=== PATIENT | female | born 1980 | race Caucasian/White ===

== ENCOUNTER 2020-12-08 17:00 | Emergency (ER) | payer BC ==
[2020-12-08 17:07] VITALS: BP 158/86
[2020-12-08 17:27] LABS: CLARITY,URINE CLOUDY (Clear); COLOR,URINE YELLOW (Yellow); GLUCOSE, URINE NEGATIVE (Neg); KETONES,URINE NEGATIVE (Neg); LEUKOCYTE ESTERASE ,URINE NEGATIVE (Neg); NITRITES, URINE NEGATIVE (Neg); OCCULT BLOOD,URINE LARGE (Neg); PROTEIN,URINE 30 mg/dl (Neg); UROBILINOGEN,URINE 0.2 E.U/dL (0.2-1.0)
[2020-12-08 17:28] LABS: URINE HCG NEGATIVE (NEG)
[2020-12-08 17:34] LABS: UA COLLECTION TYPE CLN CATCH MIDSTREAM
[2020-12-08 17:36] LABS: SQUAMOUS EPITHELIAL CELL,UR MODERATE /LPF (FEW)
[2020-12-08 17:41] LABS: RBC,URINE TNTC /HPF (0-2)
[2020-12-08 17:43] LABS: BACTERIA,URINE FEW /HPF (Neg)
[2020-12-08] MEDS ORDERED: CEPH250T PO (18:02)
--- NOTE | 2020-12-08 19:45 | NUR ---
PT DISCHARGED BY DAY/OYSTER TONGER JORGE LUIS Dior
== END 2020-12-08 19:46 | disposition home or self-care (01) ==
LOC: ER 17:00
DX: N39.0 Urinary tract infection, site not specified (principal); R20.0 Anesthesia of skin; Z79.2 Long term (current) use of antibiotics; Z98.51 Tubal ligation status
CPT/HCPCS: 81001; 81025; 87088; 99283

== ENCOUNTER 2023-02-02 19:15 | Emergency (ER) | payer BC ==
[~2023-02-02] VITALS: Ht 165.1 cm; Wt 88.6 kg
[2023-02-02 19:43] VITALS: BP 142/81; PULSE 64; RESP 16; TEMP 98.4; O2SAT 100
[2023-02-02 20:18] LABS: BILIRUBIN,URINE NEGATIVE (Neg); COLOR,URINE STRAW (Yellow); GLUCOSE, URINE NEGATIVE (Neg); KETONES,URINE NEGATIVE (Neg); LEUKOCYTE ESTERASE ,URINE TRACE (Neg); NITRITES, URINE NEGATIVE (Neg); OCCULT BLOOD,URINE MODERATE (Neg); PROTEIN,URINE NEGATIVE (Neg); UROBILINOGEN,URINE 0.2 E.U/dL (0.2-1.0)
[2023-02-02 20:25] LABS: UA COLLECTION TYPE CLN CATCH MIDSTREAM; URINE HCG NEGATIVE (NEG)
[2023-02-02 20:26] LABS: CLARITY,URINE SLIGHTLY CLOUDY (Clear)
[2023-02-02 20:34] LABS: BACTERIA,URINE NONE SEEN /HPF (Neg); CAL OXALATE CRYSTALS FEW /HPF (NEGATIVE); MUCUS STRANDS FEW /LPF (Neg); SQUAMOUS EPITHELIAL CELL,UR FEW /LPF (FEW); WBC,URINE 0-4 /HPF (0-4)
[2023-02-02] MEDS ORDERED: CIPR-20 PO (22:01)
[2023-02-02] MEDS ORDERED: ciprofloxacin 250mg tablet PO ONE (22:15)
== END 2023-02-02 22:23 | disposition home or self-care (01) ==
LOC: ER 19:15
DX: N39.0 Urinary tract infection, site not specified (principal); Z88.2 Allergy status to sulfonamides
CPT/HCPCS: 81001; 81025; 87077; 87088; 87186; 99283

== ENCOUNTER 2023-02-05 19:24 | Emergency (ER) | payer BC ==
[~2023-02-05] VITALS: Ht 165.1 cm; Wt 88.6 kg
[~2023-02-05 19:24] MED LIST: CIPR-20 PO
[2023-02-05 19:29] VITALS: BP 137/87; PULSE 95; TEMP 98.4; O2SAT 100
[2023-02-05 19:55] LABS: BILIRUBIN,URINE NEGATIVE (Neg); CLARITY,URINE TURBID (Clear); COLOR,URINE YELLOW (Yellow); GLUCOSE, URINE NEGATIVE (Neg); KETONES,URINE NEGATIVE (Neg); LEUKOCYTE ESTERASE ,URINE TRACE (Neg); NITRITES, URINE NEGATIVE (Neg); OCCULT BLOOD,URINE LARGE (Neg); PH,URINE 5.5 (4.8-8.0); PROTEIN,URINE 100 mg/dl (Neg); UROBILINOGEN,URINE 0.2 E.U/dL (0.2-1.0)
[2023-02-05 20:05] LABS: UA COLLECTION TYPE CLN CATCH MIDSTREAM
[2023-02-05 20:07] LABS: SQUAMOUS EPITHELIAL CELL,UR MANY /LPF (FEW)
[2023-02-05 20:08] LABS: BACTERIA,URINE 3+ /HPF (Neg); RBC,URINE TNTC /HPF (0-2); WBC,URINE 30-50 /HPF (0-4)
[2023-02-05 20:31] VITALS: RESP 17
[2023-02-05] MEDS ORDERED: phenazopyridine 100mg tablet PO ONE (20:40)
[2023-02-05] MEDS ORDERED: PHEN-716 PO (20:42)
[2023-02-05] MEDS ORDERED: fluconazole 150mg tablet PO ONE (20:45)
[2023-02-05] MEDS ORDERED: DIF150T PO (20:47)
[2023-02-05] MEDS ORDERED: ONDA4TAB12 PO (20:47)
--- NOTE | 2023-02-05 22:00 | NUR ---
BEAU alvarado reviewed by RN, approved by this RN
== END 2023-02-05 22:08 | disposition home or self-care (01) ==
LOC: ER 19:25
DX: N39.0 Urinary tract infection, site not specified (principal); R11.0 Nausea; Z88.2 Allergy status to sulfonamides; Z79.2 Long term (current) use of antibiotics; Z98.51 Tubal ligation status
CPT/HCPCS: 81001; 99283

== ENCOUNTER 2023-02-15 17:31 | Emergency (ER) | payer BC ==
[~2023-02-15] VITALS: Ht 165.1 cm; Wt 100.0 kg
[~2023-02-15 17:31] MED LIST changes: -CIPR-20 PO; +DIF150T PO; +ONDA4TAB12 PO; +PHEN-716 PO
[2023-02-15 17:59] VITALS: BP 136/91; PULSE 73; RESP 18; TEMP 98; O2SAT 99
[2023-02-15 19:25] LABS: BILIRUBIN,URINE NEGATIVE (Neg); COLOR,URINE YELLOW (Yellow); GLUCOSE, URINE NEGATIVE (Neg); KETONES,URINE NEGATIVE (Neg); LEUKOCYTE ESTERASE ,URINE SMALL (Neg); NITRITES, URINE NEGATIVE (Neg); OCCULT BLOOD,URINE LARGE (Neg); PROTEIN,URINE TRACE mg/dl (Neg); UROBILINOGEN,URINE 0.2 E.U/dL (0.2-1.0)
[2023-02-15 19:29] LABS: UA COLLECTION TYPE CLN CATCH MIDSTREAM
[2023-02-15 19:39] LABS: BACTERIA,URINE 1+ /HPF (Neg); MUCUS STRANDS FEW /LPF (Neg); RENAL CELLS, URINE FEW /HPF; SQUAMOUS EPITHELIAL CELL,UR FEW /LPF (FEW); TRANSITIONAL EPI CELLS,URINE MODERATE /HPF
[2023-02-15 19:40] LABS: CLARITY,URINE CLOUDY (Clear)
[2023-02-15] MEDS ORDERED: levoFLOXACIN 750MG TABLET PO ONE (20:25)
[2023-02-15] MEDS ORDERED: LEVO750T68 PO (20:27)
== END 2023-02-15 20:49 | disposition home or self-care (01) ==
LOC: ER 17:32
DX: N39.0 Urinary tract infection, site not specified (principal); Z88.1 Allergy status to other antibiotic agents; Z79.899 Other long term (current) drug therapy; Z79.2 Long term (current) use of antibiotics; Z98.51 Tubal ligation status
CPT/HCPCS: 81001; 93005; 99284